=== PATIENT | male | born 1950 | race Caucasian/White ===

== ENCOUNTER 2017-08-20 11:09 | Observation (INO) | payer OTHER ==
[~2017-08-20] VITALS: Ht 182.9 cm; Wt 100.0 kg
[~2017-08-20 11:09] MED LIST: ASPIR 8181 M1 PO; BYSTOLIC5 MG PO; CYCLOBENZAPRINE5 MG PO; MOTRIN800 MG PO; PERCOCET 5/31 TABLET PO; VITAMIN D31000 UNI2 PO
[2017-08-20 11:35] LABS: HEMATOCRIT 46.3 % (38.0-50.0); HEMOGLOBIN 16.1 G/DL (12.5-16.6); MCH 30.6 PG (29.0-34.0); MCHC 34.8 G/DL (30.0-36.0); PLATELET COUNT 223 K/uL (156-360); RBC DIS.WIDTH-CV 12.5 % (11.8-14.6); RBC DIS.WIDTH-SD 40.3 % (39-53); RED BLOOD COUNT 5.26 M/uL (4.00-5.50)
[2017-08-20 11:44] LABS: CHLORIDE 103 mEq/L (99-109); POTASSIUM 4.3 mEq/L (3.7-5.4); SODIUM 138 mEq/L (136-147)
[2017-08-20 11:45] LABS: GLUCOSE 109 mg/dL (70-99)
[2017-08-20 11:49] LABS: GFR ESTIMATE (CALCULATED) > 59 mL/min/ (58.99-99999)
[2017-08-20 11:50] LABS: UREA NITROGEN (BUN) 9 mg/dL (9-23)
[2017-08-20 11:57] LABS: TROP-I INTERPRETATION NEGATIVE; TROPONIN-I < 0.01 ng/mL (0.0-0.30)
[2017-08-20] MEDS ORDERED: NORVASC5 MG PO (13:03)
[2017-08-20 14:34] LABS: D-DIMER ELISA < 150.00 ng/mLDDU (<230)
[2017-08-20 14:54] LABS: TRIGLYCERIDES 113 MG/DL (Normal: <150)
[2017-08-20 14:55] LABS: HDL CHOLESTEROL 61 MG/DL (Desirable>=40); LDL CHOLESTEROL 111 mg/dL (Desirable<100); NON-HDL CHOLESTEROL 134 mg/dL (Desirable<160); TOTAL CHOLESTEROL 195 mg/dL (Desirable<200)
[2017-08-20 16:15] VITALS: BP 131/70
[2017-08-20 19:56] LABS: TROP-I INTERPRETATION NEGATIVE; TROPONIN-I < 0.01 ng/mL (0.0-0.30)
[2017-08-20 23:33] VITALS: BP 154/83
[2017-08-21 03:13] VITALS: BP 142/75
[2017-08-21 07:42] VITALS: BP 152/82
[2017-08-21 08:33] LABS: HEMATOCRIT 47.8 % (38.0-50.0); HEMOGLOBIN 16.3 G/DL (12.5-16.6); MCHC 34.1 G/DL (30.0-36.0); MCV 87.9 FL (86-99); PLATELET COUNT 223 K/uL (156-360); RBC DIS.WIDTH-CV 12.5 % (11.8-14.6); RBC DIS.WIDTH-SD 39.9 % (39-53); RED BLOOD COUNT 5.44 M/uL (4.00-5.50); WHITE BLOOD COUNT 5.9 K/uL (4.1-10.2)
[2017-08-21 08:58] LABS: CHLORIDE 105 MEQ/L (99-109); GFR ESTIMATE (CALCULATED) > 59 mL/min/ (58.99-99999); GLUCOSE 108 mg/dL (70-99); POTASSIUM 4.4 MEQ/L (3.7-5.4); SODIUM 138 MEQ/L (136-147); UREA NITROGEN (BUN) 11 mg/dL (9-23)
[2017-08-21 08:59] LABS: TROP-I INTERPRETATION NEGATIVE; TROPONIN-I < 0.01 ng/mL (0.0-0.30)
[2017-08-21 17:20] VITALS: BP 149/68
== END 2017-08-21 17:33 | disposition home or self-care (01) ==
LOC: EME 11:09 → EDOF 13:02 → 4SOUTH 13:02 → EDOF 13:02 → ENRESERV 13:23 → 4SOUTH 14:08
PROVIDERS: Hospitalist
PROC: B2151ZZ Fluoroscopy of Left Heart using Low Osmolar Contrast (ICD-10-PCS; principal; 2017-08-21)
PROC: B2111ZZ Fluoroscopy of Multiple Coronary Arteries using Low Osmolar Contrast (ICD-10-PCS; principal; 2017-08-21)
PROC: 4A023N7 Measurement of Cardiac Sampling and Pressure, Left Heart, Percutaneous Approach (ICD-10-PCS; principal; 2017-08-21)
DX: I25.110 Atherosclerotic heart disease of native coronary artery with unstable angina pectoris (principal); I25.84 Coronary atherosclerosis due to calcified coronary lesion; I11.9 Hypertensive heart disease without heart failure; I71.2 Thoracic aortic aneurysm, without rupture; Z91.041 Radiographic dye allergy status; Z82.49 Family history of ischemic heart disease and other diseases of the circulatory system; Z79.82 Long term (current) use of aspirin
CPT/HCPCS: 71045; 71250; 80048; 80061; 84484; 85027; 85379; 93005; 99281; 99285; C1769; C1887; G0378; J1200; J1644; J2250; J2930; J3010; S0028